=== PATIENT | male | born 1975 | race American Indian/Alaskan Native ===

== ENCOUNTER 2018-12-28 10:16 | Emergency (ER) | payer BC, OTHER ==
[2018-12-28 10:23] VITALS: BP 137/94
--- NOTE | 2018-12-28 13:10 | XRay Report ---
HISTORY:knee injury COMPARISON: None. TECHNIQUE: AP lateral and obliques views were obtained FINDINGS: Bones: No fracture or dislocation. Previous surgery with orthopedic fixation kobe proximal tibia Joint spaces: Maintained. Soft tissues: No significant abnormality. Additional findings: None. IMPRESSION: 1. No significant abnormality. Signer Name: Shady Perkins MD Signed: 12/28/2018 1:06 PM Workstation Name: [email or web address]
--- NOTE | 2018-12-28 14:01 | Emergency Department Report ---
ED Extremity Problem HPI - General Chief complaint: Extremity Injury, Lower Stated complaint: LFT KNEE PAIN/EXTREME Time Seen by Provider: 12/28/18 12:21 Source: patient Mode of arrival: Ambulatory Limitations: No Limitations - History of Present Illness Initial comments: Patient is a 43-year-old -[place] male who tripped and injured his left knee department 2 hours ago. Patient's been walking with a limp since. States this occurred while getting out of his car and he nearly fell to the ground. Patient states he has pain in the anterior knee above and below the patella. Patient states pain is 7 out of 10 in severity and is worse with flexing the knee and bear weight. He - Related Data Previous Rx's Medication Instructions Recorded Last Taken Type Ibuprofen [Motrin 800 MG tab] 800 mg PO Q8HR PRN #10 tablet 12/28/18 Unknown Rx Allergies Allergy/AdvReac Type Severity Reaction Status Date / Time No Known Allergies Allergy Unverified 12/28/18 10:17 ED Review of Systems ROS: Stated complaint: LFT KNEE PAIN/EXTREME Other details as noted in HPI Comment: All other systems reviewed and negative ED Past Medical Hx - Past Medical History Previous Medical History?: No - Surgical History Past Surgical History?: Yes Additional Surgical History: Left ACL replacement - Social History Smoking Status: Light Tobacco Smoker Substance Use Type: Alcohol - Medications Home Medications: Home Medications Medication Instructions Recorded Confirmed Last Taken Type Ibuprofen [Motrin 800 MG tab] 800 mg PO Q8HR PRN #10 tablet 12/28/18 Unknown Rx ED Physical Exam - General Limitations: No Limitations General appearance: alert, in no apparent distress - Head Head exam: Present: atraumatic, normocephalic - Eye Eye exam: Present: normal appearance - ENT ENT exam: Present: mucous membranes moist - Neck Neck exam: Present: normal inspection - Respiratory Respiratory exam: Present: normal lung sounds bilaterally. Absent: respiratory distress, wheezes, rales, rhonchi - GI/Abdominal GI/Abdominal exam: Present: normal bowel sounds. Absent: distended - Rectal Rectal exam: Present: deferred - Extremities Exam Extremities exam: Present: normal inspection - Expanded Lower Extremity Exam Left Knee exam: Present: full ROM, tenderness, swelling. Absent: ecchymosis, deformity, posterior draw sign - Back Exam Back exam: Present: normal inspection - Neurological Exam Neurological exam: Present: alert, oriented X3 - Psychiatric Psychiatric exam: Present: normal affect, normal mood - Skin Skin exam: Present: warm, dry, intact, normal color. Absent: rash ED Course Vital Signs 12/28/18 10:21 Temperature 98.6 F Pulse Rate 56 L Respiratory 18 Rate Blood Pressure 137/94 O2 Sat by Pulse 96 Oximetry ED Medical Decision Making - Radiology Data X-ray left knee is within normal limits. - Medical Decision Making Patient likely with a sprain to the left knee. His [place] wrap and will follow with orthopedics if his pain persists. Critical care attestation.: If time is entered above; I have spent that time in minutes in the direct care of this critically ill patient, excluding procedure time. ED Disposition Clinical Impression: Knee sprain Qualifiers: Encounter type: initial encounter Involved ligament of knee: unspecified ligament Laterality: left Qualified Code(s): S83.92XA - Sprain of unspecified site of left knee, initial encounter Disposition: -01 TO HOME OR SELFCARE Is pt being admited?: No Does the pt Need Aspirin: No Condition: Stable Instructions: Knee Sprain (ED), RICE Therapy (ED) Referrals: ABDIRASHID CONNOR MD [Staff Physician] - as needed Time of Disposition: 14:00
== END 2018-12-28 14:09 | disposition home or self-care (01) ==
LOC: ED 10:16
DX: S83.92XA Sprain of unspecified site of left knee, initial encounter (principal); F17.200 Nicotine dependence, unspecified, uncomplicated; Z79.899 Other long term (current) drug therapy; W01.198A Fall on same level from slipping, tripping and stumbling with subsequent striking against other object, initial encounter; Y93.89 Activity, other specified; Y92.89 Other specified places as the place of occurrence of the external cause; Y99.8 Other external cause status
CPT/HCPCS: 99283